=== PATIENT | male | born 1980 | race Caucasian/White ===

== ENCOUNTER 2016-08-22 23:00 | Emergency (ER) | payer BC ==
[~2016-08-22] VITALS: Ht 182.9 cm; Wt 87.0 kg
[2016-08-23 01:00] VITALS: BP 108/69
== END 2016-08-23 00:10 | disposition home or self-care (01) ==
LOC: ED 23:02
DX: T78.49XA Other allergy, initial encounter (principal); R09.89 Other specified symptoms and signs involving the circulatory and respiratory systems; T50.995A Adverse effect of other drugs, medicaments and biological substances, initial encounter; Y92.009 Unspecified place in unspecified non-institutional (private) residence as the place of occurrence of the external cause
CPT/HCPCS: 99281; 99282